=== PATIENT | female | born 2000 | race Caucasian/White ===

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

== ENCOUNTER → 2022-11-17 | Outpatient (CLI) | payer BC ==
[~2022-11-17] MED LIST changes: +SUCR1TAB36 PO
--- NOTE | 2022-11-17 18:11 | Diagnostic Imaging Report ---
EXAMINATION: Chest (PA and lateral). CLINICAL INDICATION: 22-year-old female, cough and congestion. COMPARISON: None. FINDINGS: Heart size and mediastinal contours are unremarkable. There is no pleural effusion. There is an area of focal consolidation in the left lower lung zone on the frontal view. There is no otherwise identified focal airspace consolidation. There is no pneumothorax. IMPRESSION: Focal consolidation in the left lower lobe which may reflect pneumonia or other alveolar consolidative process. Recommend correlation clinically and follow-up to resolution. Dictated by: Dictated on workstation # [id number]
== END ==
LOC: RAD 15:42
PROVIDERS: ATTEND Nurse Practitioner Family
DX: J18.1 Lobar pneumonia, unspecified organism (principal); J40 Bronchitis, not specified as acute or chronic
CPT/HCPCS: 71046

== ENCOUNTER → 2022-11-30 | Outpatient (CLI) | payer BC | LOC: RAD 16:30 | PROVIDERS: ATTEND Nurse Practitioner Family | DX: J18.9 Pneumonia, unspecified organism (principal) ==

== ENCOUNTER → 2022-12-01 | Outpatient (CLI) | payer BC ==
--- NOTE | 2022-12-01 09:16 | Diagnostic Imaging Report ---
Indication: Lower respiratory infection PA and lateral chest Heart size and pulmonary vascularity are normal. Lungs are clear. There are no effusions or pneumothoraces. IMPRESSION: Negative chest. Dictated by: Dictated on workstation # [id number]
== END ==
LOC: RAD 08:57
PROVIDERS: ATTEND Nurse Practitioner Family
DX: J18.9 Pneumonia, unspecified organism (principal)
CPT/HCPCS: 71046

== ENCOUNTER → 2022-12-01 | Outpatient (CLI) | payer BC | LOC: LAB 13:34 | PROVIDERS: ATTEND Internal Medicine | DX: J40 Bronchitis, not specified as acute or chronic (principal) | CPT/HCPCS: 36415; 82784 ==